=== PATIENT | female | born 1975 | race American Indian/Alaskan Native ===

== ENCOUNTER 2018-03-03 20:05 | Emergency (ER) | payer MEDICAID ==
[2018-03-03 20:28] VITALS: BMI 32.3
--- NOTE | 2018-03-03 21:23 | ED PDOC ---
Arrival/HPI - General Chief Complaint: Chest Pain Time Seen by Provider: 03/03/18 20:44 Historian: Patient - History of Present Illness Narrative History of Present Illness (Text): 03/03/18 21:45 A 42 year old female, with no significant past medical history, presents to the emergency department complaining of chest discomfort for the past few days. The patient states that the pain is reproducible with position change and arm movement. 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 The patient also complains of mild swelling to her left ankle. She denies history of known trauma. The patient denies fevers, chills, headache, dizziness, shortness of breath, dyspnea on exertion, cough, abdominal pain, nausea, vomiting, diarrhea, back pain, neck pain, urinary/bowel changes, trauma/injury, calf/leg pain, or any other complaint. PMD: Dr. Kenney Time/Duration: Other (Several Days) Symptom Onset: Sudden Symptom Course: Unchanged Activities at Onset: Rest, Light Context: Home Past Medical History - Provider Review Nursing Documentation Reviewed: Yes - Infectious Disease Hx of Infectious Diseases: None - Tetanus Immunization Tetanus Immunization: Unknown - Past Medical History Past Medical History: No Previous - Cardiac Hx Cardiac Disorders: No - Pulmonary Hx Respiratory Disorders: Yes ("SINUS PROBLEMS FOR 2 YEARS") - Neurological Hx Neurological Disorder: No - HEENT Hx HEENT Disorder: Yes Other/Comment: "SINUS PROBLEMS FOR 2 YEARS" - Renal Hx Renal Disorder: No - Endocrine/Metabolic Hx Endocrine Disorders: No - Hematological/Oncological Hx Blood Disorders: Yes Hx Anemia: Yes Hx Blood Transfusions: Yes (NO REACTION) Other/Comment: 1997 BIOPSY OF NECK-> VALLEY FEVER - Integumentary Hx Dermatological Disorder: No - Musculoskeletal/Rheumatological Hx Musculoskeletal Disorders: No - Gastrointestinal Hx Gastrointestinal Disorders: No - Genitourinary/Gynecological Hx Genitourinary Disorders: Yes Hx Urinary Tract Infection: Yes Other/Comment: FIBROID UTERUS-FIBROIDS REMOVED, HEAVY MENSTRUAL BLEEDIN-> PARTIAL HYSTERECTOMY - Psychiatric Hx Psychophysiologic Disorder: No Hx Substance Use: Yes (marijuana) - Past Surgical History Past Surgical History: No Previous - Surgical History Hx Hysterectomy: Yes (PARTIAL) Other/Comment: "SWEAT GLANDS REMOVED FROM BOTH SIDES UNDER MY ARMS". BX. NECK 1997-> VALLEY FEVER. FIBROIDS REMOVED. PARTIAL HYSTERECTOMY. - Anesthesia Hx Anesthesia: Yes Hx Anesthesia Reactions: No Hx Malignant Hyperthermia: No - Suicidal Assessment Feels Threatened In Home Enviroment: No Family/Social History - Physician Review Nursing Documentation Reviewed: Yes Family/Social History: No Known Family HX Smoking Status: Heavy Smoker > 10 Cigarettes Daily Hx Alcohol Use: Yes Hx Substance Use: Yes (marijuana) Hx Substance Use Treatment: No Allergies/Home Meds Allergies/Adverse Reactions: Allergies ivp dye Allergy (Uncoded 03/03/18 20:28) DIZZINESS Review of Systems - Physician Review All systems were reviewed & negative as marked: Yes - Review of Systems Constitutional: absent: Fevers, Night Sweats Respiratory: absent: SOB, Cough Cardiovascular: Chest Pain. absent: LINK Gastrointestinal: absent: Abdominal Pain, Diarrhea, Nausea, Vomiting Musculoskeletal: Other (Mild left ankle swelling. Right upper arm pain. ). absent: Back Pain, Neck Pain Neurological: absent: Headache, Dizziness Physical Exam Vital Signs Reviewed: Yes Vital Signs Temp Pulse Resp BP Pulse Ox 03/03/18 21:56 98.1 F 65 17 124/50 L 100 03/03/18 20:29 98.7 F 68 19 125/78 98 Temperature: Afebrile Blood Pressure: Normal Pulse: Regular Respiratory Rate: Normal Appearance: Positive for: Well-Appearing, Non-Toxic, Comfortable Pain Distress: None Mental Status: Positive for: Alert and Oriented X 3 - Systems Exam Head: Present: Atraumatic, Normocephalic Pupils: Present: PERRL Extroacular Muscles: Present: EOMI Conjunctiva: Present: Normal Mouth: Present: Moist Mucous Membranes Neck: Present: Normal Range of Motion Respiratory/Chest: Present: Clear to Auscultation, Good Air Exchange, Tender to Palpation (Palpable chest wall tenderness. ). No: Respiratory Distress, Accessory Muscle Use Cardiovascular: Present: Regular Rate and Rhythm, Normal S1, S2. No: Murmurs Abdomen: No: Tenderness, Distention, Peritoneal Signs Back: Present: Normal Inspection Upper Extremity: Present: Normal Inspection. No: Cyanosis, Edema Lower Extremity: Present: Normal Inspection, NORMAL PULSES, Normal ROM, Swelling (Non-edematous minimal swelling to the left lateral and medial ankle/ non tender. ), Neurovascularly Intact. No: Edema, CALF TENDERNESS, Virgilio's Sign , Tenderness, Erythema, Deformity Neurological: Present: GCS=15, CN II-XII Intact, Speech Normal, Motor Func Grossly Intact, Normal Sensory Function Skin: Present: Warm, Dry, Normal Color. No: Rashes Psychiatric: Present: Alert, Oriented x 3, Normal Insight, Normal Concentration Medical Decision Making ED Course and Treatment: 03/03/18 21:54 Impression: A 42 year old female presents to the emergency department complaining of chest discomfort, right arm discomfort, and left ankle swelling. Plan: -- EKG -- Chest X-ray -- Right Ankle X-Ray -- Labs -- Reassess and disposition Progress Notes: EKG: Ordered, reviewed, and independently interpreted the EKG. Rate : 64 BPM Rhythm : NSR Interpretation : Non-specific T-wave changes. Comparison : No previous EKG for comparison. 03/04/18 00:59: Chest and Ankle X-rays read and interpreted by me show no acute processes. - Lab Interpretations Lab Results: 03/03/18 21:36 03/03/18 21:36 Lab Results 03/03/18 21:36: WBC 5.1, RBC 4.49, Hgb 13.1, Hct 37.5, MCV 83.5, MCH 29.2, MCHC 34.9, RDW 12.4, Plt Count 233, MPV 8.7 03/03/18 21:36: Sodium 139, Potassium 4.1, Chloride 100, Carbon Dioxide 29, Anion Gap 14, BUN 12, Creatinine 0.8, Est GFR ( Amer) > 60, Est GFR (Non- Af Amer) > 60, Random Glucose 91, Calcium 10.6 H, Total Bilirubin 0.4, AST 24, ALT 31, Alkaline Phosphatase 39, Lactate Dehydrogenase 431, Total Creatine Kinase 101, Troponin I < 0.01, Total Protein 7.9, Albumin 4.3, Globulin 3.6, Albumin/Globulin Ratio 1.2 03/03/18 21:36: PT 11.8, INR 1.03, APTT 32.2 I have reviewed the lab results: Yes - RAD Interpretation Radiology Orders: 03/03/18 20:56 CHEST PORTABLE [RAD] Stat 03/03/18 20:57 ANKLE LEFT 3 VIEWS ROUTINE [RAD] Stat - EKG Interpretation Interpreted by ED Physician: Yes Type: 12 lead EKG - Scribe Statement The provider has reviewed the documentation as recorded by the Scribe Goldie Haas Provider Scribe Attestation: All medical record entries made by the Scribe were at my direction and personally dictated by me. I have reviewed the chart and agree that the record accurately reflects my personal performance of the history, physical exam, medical decision making, and the department course for this patient. I have also personally directed, reviewed, and agree with the discharge instructions and disposition. Disposition/Present on Arrival - Present on Arrival Any Indicators Present on Arrival: No History of DVT/PE: No History of Uncontrolled Diabetes: No Urinary Catheter: No History of Decub. Ulcer: No History Surgical Site Infection Following: None - Disposition Have Diagnosis and Disposition been Completed?: Yes Diagnosis: Muscular chest pain, Muscle strain of chest wall Disposition: HOME/ ROUTINE Disposition Time: 01:15 Patient Plan: Discharge Condition: GOOD Discharge Instructions (ExitCare): Chest Pain (ED), Muscle Strain (DC), Costochondritis (DC) Additional Instructions: Rest/no strenuous physical activity/take meds as prescribed/follow up with your doctor this week Prescriptions: Naproxen [Naprosyn] 500 mg PO BID PRN #14 tab PRN Reason: Pain Referrals: Shivani Kenney MD [Primary Care Provider] - Follow up with primary Forms: [employer] (Cook Islander)
[2018-03-03 21:43] LABS: HEMOGLOBIN 13.1 g/dL (12.0-16.0); MEAN CELL VOLUME 83.5 fl (80.0-105.0); MEAN CORPUSCULAR HEMOGLOBIN 29.2 pg (25.0-35.0); MEAN CORPUSCULAR HGB CONC 34.9 g/dl (31.0-37.0); MEAN PLATELET VOLUME 8.7 fl (7.0-11.0); RBC 4.49 10^6/uL (3.5-6.1); RED CELL DISTRIBUTION WIDTH 12.4 % (11.5-14.5); WHITE BLOOD COUNT 5.1 10^3/ul (4.5-11.0)
[2018-03-03 21:52] LABS: INR 1.03 (0.93-1.08); PARTIAL THROMBOPLASTIN TIME 32.2 Seconds (25.1-36.5); PROTHROMBIN TIME 11.8 SECONDS (9.4-12.5)
[2018-03-03 21:53] LABS: ALB/GLOB RATIO 1.2 (1.1-1.8); ALBUMIN 4.3 g/dL (3.0-4.8); ALT/SGPT 31 U/L (7-56); AST/SGOT 24 U/L (14-36); BLOOD UREA NITROGEN 12 mg/dL (7-21); CALCIUM 10.6 mg/dL (8.4-10.5); GFR AFRICAN-AMERICAN > 60; GFR NON-AFRICAN AMERICAN > 60
[2018-03-03 21:56] VITALS: RESP 17; O2SAT 100
[2018-03-03 22:06] LABS: TROPONIN I < 0.01 ng/mL
[2018-03-04 01:39] VITALS: BP 120/68; PULSE 68; TEMP 98.2
--- NOTE | 2018-03-04 09:16 | RAD ---
HISTORY: pain COMPARISON: No prior. FINDINGS: LUNGS: No active pulmonary disease. PLEURA: No significant pleural effusion identified, no pneumothorax apparent. CARDIOVASCULAR: Normal. OSSEOUS STRUCTURES: No significant abnormalities. VISUALIZED UPPER ABDOMEN: Normal. OTHER FINDINGS: None. IMPRESSION: No active disease.
--- NOTE | 2018-03-04 09:25 | RAD ---
PROCEDURE: Left Ankle Radiographs. HISTORY: swelling COMPARISON: None FINDINGS: BONES: Normal. No fracture. JOINTS: Normal. No osteoarthritis. Ankle mortise maintained. Talar dome intact SOFT TISSUES: Normal. OTHER FINDINGS: None. IMPRESSION: Normal left ankle radiographs.
--- NOTE | 2018-03-04 09:35 | CARD ---
APPROVED REPORT EKG Measurement Heart [id number] [id number] <Conclusion> Normal sinus rhythm Nonspecific T wave abnormality LVH by voltage
== END 2018-03-04 01:38 | disposition home or self-care (01) ==
LOC: ED 20:05
DX: S29.011A Strain of muscle and tendon of front wall of thorax, initial encounter (principal); X58.XXXA Exposure to other specified factors, initial encounter; R07.89 Other chest pain; F17.210 Nicotine dependence, cigarettes, uncomplicated

== ENCOUNTER 2019-01-08 13:45 | Emergency (ER) | payer MEDICAID ==
[2019-01-08 13:46] VITALS: BMI 32.3
[2019-01-08 14:42] VITALS: BP 123/78; PULSE 66; RESP 18; TEMP 98.4; O2SAT 99
--- NOTE | 2019-01-08 14:56 | ED PDOC ---
Arrival/HPI - General Chief Complaint: Abnormal Skin Integrity Time Seen by Provider: 01/08/19 14:46 Historian: Patient - History of Present Illness Narrative History of Present Illness (Text): 01/08/19 14:59 A 43 year old female, w/no significant PMH, presents to the emergency department complaining of non itchy rash to her left shoulder. Patient reports she has had this rash since 08/2018. States she has been taking prescribed steroids, however rash has not subsided nor has it worsened. Also, patient mentions experiencing neck cramping sensation to right side which worsens when she turns her head to the right. States lately she feels this neck pain every morning upon waking up. She has taken Advil however has had no relief of the pain. Patient denies any neck stiffness, headache, f/c, visual changes, trauma, or any other complaints at this time. Past Medical History - Provider Review Nursing Documentation Reviewed: Yes - Infectious Disease Hx of Infectious Diseases: None - Tetanus Immunization Tetanus Immunization: Unknown - Reproductive Currently : No - Past Medical History Past Medical History: No Previous - Cardiac Hx Cardiac Disorders: No - Pulmonary Hx Respiratory Disorders: Yes ("SINUS PROBLEMS FOR 2 YEARS") - Neurological Hx Neurological Disorder: No - HEENT Hx HEENT Disorder: Yes Other/Comment: "SINUS PROBLEMS FOR 2 YEARS" - Renal Hx Renal Disorder: No - Endocrine/Metabolic Hx Endocrine Disorders: No - Hematological/Oncological Hx Blood Disorders: Yes Hx Anemia: Yes Hx Blood Transfusions: Yes (NO REACTION) Other/Comment: 1997 BIOPSY OF NECK-> VAL[place] FEVER - Integumentary Hx Dermatological Disorder: No - Musculoskeletal/Rheumatological Hx Musculoskeletal Disorders: No - Gastrointestinal Hx Gastrointestinal Disorders: No - Genitourinary/Gynecological Hx Genitourinary Disorders: Yes Hx Urinary Tract Infection: Yes Other/Comment: FIBROID UTERUS-FIBROIDS REMOVED, HEAVY MENSTRUAL BLEEDIN-> PARTIAL HYSTERECTOMY - Psychiatric Hx Psychophysiologic Disorder: No Hx Substance Use: Yes (marijuana) - Past Surgical History Past Surgical History: No Previous - Surgical History Hx Hysterectomy: Yes (PARTIAL) Other/Comment: "SWEAT GLANDS REMOVED FROM BOTH SIDES UNDER MY ARMS". BX. NECK 1997-> VALLEY FEVER. FIBROIDS REMOVED. PARTIAL HYSTERECTOMY. - Anesthesia Hx Anesthesia: Yes Hx Anesthesia Reactions: No Hx Malignant Hyperthermia: No - Suicidal Assessment Feels Threatened In Home Enviroment: No Family/Social History - Physician Review Nursing Documentation Reviewed: Yes Family/Social History: No Known Family HX Smoking Status: Light Smoker < 10 Cigarettes Daily Hx Alcohol Use: Yes Frequency of alcohol use: Socially Hx Substance Use: Yes (marijuana) Hx Substance Use Treatment: No Allergies/Home Meds Allergies/Adverse Reactions: Allergies ivp dye Allergy (Uncoded 01/08/19 14:42) DIZZINESS Review of Systems - Physician Review All systems were reviewed & negative as marked: Yes - Review of Systems Constitutional: absent: Other (no trauma) Musculoskeletal: Neck Pain (right-side) Skin: Rash (left shoulder). absent: Pruritis Physical Exam Vital Signs Reviewed: Yes Vital Signs Temp Pulse Resp BP Pulse Ox 01/08/19 14:38 98.4 F 66 18 123/78 99 Temperature: Afebrile Blood Pressure: Normal Pulse: Regular Respiratory Rate: Normal Appearance: Positive for: Well-Appearing, Non-Toxic, Comfortable Pain Distress: None Mental Status: Positive for: Alert and Oriented X 3 - Systems Exam Head: Present: Atraumatic, Normocephalic Pupils: Present: PERRL Extroacular Muscles: Present: EOMI Conjunctiva: Present: Normal Mouth: Present: Moist Mucous Membranes Neck: Present: Normal Range of Motion, Paraspinal Tenderness, Other (right-side tenderness and right trapezius). No: MIDLINE TENDERNESS Respiratory/Chest: No: Respiratory Distress, Accessory Muscle Use Abdomen: Present: Distention Upper Extremity: Present: Normal Inspection, NORMAL PULSES, Capillary Refill < 2s. No: Cyanosis, Edema, Tenderness, Swelling Neurological: Present: GCS=15, CN II-XII Intact, Speech Normal, Motor Func Grossly Intact, Normal Sensory Function Skin: Present: Warm, Dry, Rashes (left anterior shoulder , 2 patches well- circumsized, no erythema, no vesicles, no pus), Normal Color. No: Erythematous Psychiatric: Present: Alert, Oriented x 3, Normal Insight, Normal Concentration Medical Decision Making ED Course and Treatment: 01/08/19 15:01 Impression:43 year old female with rash and neck pain. Plan: -- Patient advised to f/u w/her pcp for further evaluation re rash and possible referral to internet manager. D/w patient using warm compresses on neck and taking anti inflammatory. Pt requesting Motrin 800 mg which was provided to her. Pt stable for d/c. Patient agreeable w/POC and verbalized understanding to f/u and to RTED for new, worsening or concerning symtpoms. Progress Notes: - Scribe Statement The provider has reviewed the documentation as recorded by the Laurel Mendoza Provider Scribe Attestation: All medical record entries made by the Scribe were at my direction and personally dictated by me. I have reviewed the chart and agree that the record accurately reflects my personal performance of the history, physical exam, medical decision making, and the department course for this patient. I have also personally directed, reviewed, and agree with the discharge instructions and disposition. Disposition/Present on Arrival - Present on Arrival Any Indicators Present on Arrival: No History of DVT/PE: No History of Uncontrolled Diabetes: No Urinary Catheter: No History of Decub. Ulcer: No History Surgical Site Infection Following: None - Disposition Have Diagnosis and Disposition been Completed?: No Diagnosis: Rash and nonspecific skin eruption, Muscle spasms of neck Disposition: HOME/ ROUTINE Disposition Time: 14:55 Patient Plan: Discharge Condition: GOOD Discharge Instructions (ExitCare): Skin Rash (DC), Muscle Spasms (DC) Additional Instructions: ZBIGNIEW RYAN, thank you for letting us take care of you today. Your provider was Sheryl Brooks MD and you were treated for RASH ON ARM/NECK ACHE. The emergency medical care you received today was directed at your acute symptoms. If you were prescribed any medication, please fill it and take as directed. It may take several days for your symptoms to resolve. Return to the Emergency Department if your symptoms worsen, do not improve, or if you have any other p roblems. Please contact your doctor in 1-2 days for a follow up appointment. Bring any paperwork you were given at discharge with you along with any medications you are taking to your follow up visit. Our treatment cannot replace ongoing medical care by a primary care provider outside of the emergency department. Thank you for allowing the [facility] team to be part of your care today. Prescriptions: RX: Ibuprofen [Motrin Tab] 800 mg PO TID PRN #30 tab PRN Reason: Pain, Moderate (4-7) Forms: [employer] (Hebrew)
== END 2019-01-08 15:01 | disposition home or self-care (01) ==
LOC: ED 13:45
DX: R21 Rash and other nonspecific skin eruption (principal); M62.838 Other muscle spasm